=== PATIENT | female | born 1955 | race Caucasian/White ===

== ENCOUNTER → 2016-09-04 | Outpatient (CLI) | payer MEDICARE, OTHER ==
[~2016-09-04] MED LIST: ACET-141 PO; AMIO200T46 PO; AMLO-147 PO; ASPI81TA3 PO; ATOR80TA75 PO; CALC667C PO; CLOP75TA27 PO; DIPH25CA6 PO; ERGO500037 PO; HYDR-3498 PO; HYDR-3671 PO; HYDR12.544 PO; ONDA4TAB95 PO
--- NOTE | 2016-09-04 14:05 | RADRPT ---
Vent Rate: 66 bpm RR Interval: 0 msec OK Interval: 168 msec QRS Duration: 100 msec QT Interval: 428 msec QTC Interval: 448 msec P-R-T [place]: 43 - 37 - 112 degrees Normal sinus rhythm Nonspecific T wave abnormality Abnormal ECG Electronically Signed By: David Klein [id number]
== END | disposition home or self-care (01) ==
LOC: LAB 08:50
PROVIDERS: ATTEND Internal Medicine
DX: Z01.818 Encounter for other preprocedural examination (principal)
CPT/HCPCS: 93005

== ENCOUNTER 2016-09-22 10:49 | Emergency (ER) | payer MEDICARE, OTHER ==
[~2016-09-22] VITALS: Ht 152.4 cm; Wt 57.5 kg
[2016-09-22 10:52] VITALS: Ht 152.4 cm; Wt 57.5 kg
[2016-09-22] MEDS ORDERED: HYDROCODONE/APAP (5/325) TAB PO ONE (11:30)
--- NOTE | 2016-09-22 14:16 | ERD ---
ER Documentation Chief Complaint Date/Time DATE: 09/22/16 TIME: 14:14 Chief Complaint left arm pain at the dialysis shunt site, after dialysis yesterday HPI This 61-year-old female presents emergency room with left pain at her shunt site after having dialysis yesterday. States that the arm feels sore. He has not had any bleeding from the site. She has no symptoms distal to the site. Denies any fever chills or discharge from the site ROS All systems reviewed and are negative except as per history of present illness. Medications Home Meds Active Scripts Hydrocodone/Acetaminophen ([place] 5-325 Tablet) 1 Each Tablet, 1 EACH PO Q6, #10 TAB Prov:MALICK MYERS 09/22/16 Amlodipine Besylate* (Amlodipine Besylate*) 10 Mg Tablet, 10 MG PO DAILY, #90 TAB Prov:ROXANA DEL ANGEL MD 10/05/15 Hydralazine Hcl* (Hydralazine Hcl*) 25 Mg Tab, 50 MG PO BID, #180 TAB Prov:ROXANA DEL ANGEL MD 10/05/15 Hydrocodone Bit-Acetaminophen* ([place]*) 5-325 Mg Tab, 1 TAB PO Q6 Y for PAIN, # 7 TAB Prov:RADHA JOHNSON MD 08/20/15 Aspirin (Aspirin) 81 Mg Chew, 81 MG PO DAILY for 30 Days, 2 Refills Prov:NIKI SIMON S. 10/18/14 Amiodarone Hcl* (Cordarone*) 200 Mg Tab, 200 MG PO DAILY for 30 Days, TAB 2 Refills Prov:NIKI SIMON SDes 10/18/14 Reported Medications Ondansetron Hcl* (Ondansetron Hcl*) 4 Mg Tablet, 4 MG PO Q6H, TAB 08/25/15 Ergocalciferol (Vitamin D2) (VITAMIN D2) 50,000 Unit Capsule, 93451 UNIT PO, CAP 08/19/15 Atorvastatin* (Atorvastatin*) 80 Mg Tablet, 80 MG PO QHS, #30 TAB 08/19/15 Hydrochlorothiazide* (Microzide*) 12.5 Mg Capsule, 12.5 MG PO DAILY, #30 CAP 08/19/15 Clopidogrel Bisulfate (Clopidogrel) 75 Mg Tablet, 75 MG PO DAILY, #30 TAB 08/19/15 Acetaminophen* (Acetaminophen*) 500 MG Extra Strength Tablet, 500 MG PO Q6 Y for PAIN AND OR ELEVATED TEMP, TAB 08/19/15 Calcium Acetate* (Calcium Acetate*) 667 Mg Capsule, 1334 MG PO WITH MEALS, #60 CAP 07/09/15 Diphenhydramine Hcl* (Diphenhydramine Hcl*) 25 Mg Capsule, 25 MG PO Q6 Y for ITCHING, CAP 09/30/14 Allergies Allergies: Coded Allergies: morphine (Verified Allergy, Intermediate, RESPIRATORY PROBLEM,SOB SWELLING THROAT, 10/21/15) PMhx/Soc History of Surgery: No Anesthesia Reaction: No Hx Neurological Disorder: No Hx Respiratory Disorders: No Hx Cardiac Disorders: No Hx Psychiatric Problems: No Hx Miscellaneous Medical Probl: No Hx Alcohol Use: No Hx Substance Use: No Hx Tobacco Use: No Smoking Status: Never smoker Physical Exam Vitals Vital Signs Date Time Temp Pulse Resp B/P Pulse Ox O2 Delivery O2 Flow Rate FiO2 09/22/16 10:52 98.0 65 20 155/69 98 Physical Exam Const: [] No distress Head: Atraumatic Eyes: Normal Conjunctiva ENT: Normal External Ears, Nose and Mouth. Skin: No petechiae or rashes Ext: No cyanosis, or edema, left upper arm graft with apparent puncture wounds and no active bleeding., There is a palpable thrill along the entire upper arm graft. Does have mild tenderness to palpation. No surrounding erythema, or any other signs of infection. Results 24 hrs Current Medications Medications (Trade) Dose Ordered Sig/Jeanine Route PRN Reason Start Time Stop Time Status Last Admin Dose Admin Acetaminophen/ Hydrocodone Bitart ([place] (5/325)) 1 tab ONCE ONCE PO 09/22/16 11:30 09/22/16 11:31 DC 09/22/16 11:31 Procedures/MDM Left upper extremity graft ultrasound interpretation: Increased velocity in 50- 75% stenosis at site. Spoke with Dr. Gian rodriges about the ultrasound findings. He said is appropriate for the patient follow-up in his office the next 1-2 weeks and he will perform a fistulogram. Prescribe her a few [place] for any continued pain. Return precautions the ER also given. Departure Diagnosis: Primary Impression: Problem with dialysis access Condition: Stable MALICK MYERS DO Sep 22, 2016 14:16
[2016-09-22] MEDS ORDERED: HYDR-906 PO (14:31)
--- NOTE | 2016-09-22 16:26 | RADRPT ---
PROCEDURE: Left upper extremity arterial ultrasound CLINICAL INDICATION: Arm pain TECHNIQUE: Color images with Doppler of the arteries of the left upper extremity were obtained. COMPARISON: None available FINDINGS: Antegrade flow is seen in the arteries of the left upper extremity. A patent left upper extremity di alysis graft is observed. Velocities: Subclavian artery 100 cm/s.. Axillary artery 91 cm/s. Brachial artery 219 cm/s. Ulnar artery 69 cm/s. Radial artery 19 cm/s. Arterial anastomosis 563 cm/sec Proximal graft 342 cm/sec Mid graft 191 cm/sec Distal graft 103 cm/sec Venous anastomosis 521 cm/sec IMPRESSION: Antegrade flow in the arteries of the left upper extremity. Patent left upper extremity dialysis graft. Elevated velocity in the left brachial artery, possibly indicating stenosis. Decreased velocity in the left radial artery, possibly indicating inflow disease into the radial art carlee. Elevated velocity at the arterial anastomosis of the left upper extremity dialysis graft that may re flect stenosis. Elevated velocity at the distal anastomosis of the left upper extremity dialysis graft, compatible w ith stenosis. If further characterization is needed CTA or correlation with traditional angiography can be conside red. RPTAT: AA .Basim Moser MD, Date Time Electronically viewed and signed by .Basim Moser MD, MD on 09/22/2016 16:25 .P/
== END 2016-09-22 17:22 | disposition left against medical advice (07) ==
LOC: FTE 10:49
DX: T82.848A Pain due to vascular prosthetic devices, implants and grafts, initial encounter (principal); Y73.2 Prosthetic and other implants, materials and accessory gastroenterology and urology devices associated with adverse incidents; Z79.82 Long term (current) use of aspirin
CPT/HCPCS: 93931

== ENCOUNTER 2016-11-11 13:02 | Emergency (ER) | payer MEDICARE, OTHER ==
[~2016-11-11] VITALS: Ht 162.6 cm; Wt 59.0 kg
[~2016-11-11 13:02] MED LIST changes: +HYDR-906 PO
[2016-11-11 13:10] VITALS: Ht 162.6 cm; Wt 59.0 kg
[2016-11-11] MEDS ORDERED: DEXAMETHASONE 10 MG/ML 1 ML INJ IV ONE (16:30)
[2016-11-11] MEDS ORDERED: METOCLOPRAMIDE 10 MG INJ IV ONE (16:30)
[2016-11-11] MEDS ORDERED: DIPHENHYDRAMINE 50 MG INJ IV ONE (16:30)
[2016-11-11 16:33] VITALS: TEMP 97.8
[2016-11-11 17:34] LABS: BASOPHILS % 0.4 % (0.0-2.0); EOSINOPHILS # 0.2 10^3/ul (0.0-0.5); EOSINOPHILS % 1.8 % (0.0-7.0); HEMATOCRIT 33.7 % (37.0-47.0); HEMOGLOBIN 11.4 g/dl (12.0-16.0); LYMPHOCYTES # 2.2 10^3/ul (0.8-2.9); LYMPHOCYTES % 22.7 % (15.0-51.0); MEAN CORPUSCULAR HGB CONC 33.8 g/dl (32.0-37.0); MEAN CORPUSCULAR VOLUME 97.7 fl (82.0-101.0); MEAN PLATELET VOLUME 10.5 fl (7.4-10.4); MONOCYTE # 0.9 10^3/ul (0.3-0.9); MONOCYTES % 9.5 % (0.0-11.0); NEUTROPHILS % 65.3 % (39.0-77.0); PLATELET COUNT 191 10^3/UL (140-415); RED BLOOD COUNT 3.45 10^6/ul (4.20-5.40); RED CELL DISTRIBUTION WIDTH 11.9 % (11.5-14.5); WHITE BLOOD COUNT 9.5 10^3/ul (4.8-10.8)
[2016-11-11 18:16] LABS: ALBUMIN 4.3 g/dl (3.3-4.9); ALBUMIN/GLOBULIN RATIO 1.3; BILIRUBIN,INDIRECT 0.2 mg/dl (0-1.1); BILIRUBIN,TOTAL 0.2 mg/dl (0.2-1.3); CREATININE 4.4 mg/dl (0.44-1.00); POTASSIUM 4.5 mmol/L (3.5-5.1); TOTAL PROTEIN 7.6 g/dl (6.1-8.1)
--- NOTE | 2016-11-11 18:28 | ERD ---
ER Documentation Chief Complaint Date/Time DATE: 11/11/16 TIME: 18:25 Chief [address] her [address] to dialysis, came in for n/v and headache HPI This 61-year-old female presents to the emergency room for evaluation of nausea , and vomiting. The patient states that she is also had a headache for the past 3 days. She does state that she has had a headache like this before and the patient states that she was on her way to dialysis but decided to come to the emergency room. She gets dialysis Sunday, , Sunday. Patient denies any neck pain or fevers associated with this and came to the emergency room for evaluation. ROS All systems reviewed and are negative except as per history of present illness. Medications Home Meds Active Scripts Hydrocodone/Acetaminophen ([place] 5-325 Tablet) 1 Each Tablet, 1 EACH PO Q6, #10 TAB Prov:MALICK MYERS DO 09/22/16 Amlodipine Besylate* (Amlodipine Besylate*) 10 Mg Tablet, 10 MG PO DAILY, #90 TAB Prov:ROXANA DEL ANGEL MD 10/05/15 Hydralazine Hcl* (Hydralazine Hcl*) 25 Mg Tab, 50 MG PO BID, #180 TAB Prov:ROXANA DEL ANGEL MD 10/05/15 Hydrocodone Bit-Acetaminophen* ([place]*) 5-325 Mg Tab, 1 TAB PO Q6 Y for PAIN, # 7 TAB Prov:RADHA JOHNSON MD 08/20/15 Aspirin (Aspirin) 81 Mg Chew, 81 MG PO DAILY for 30 Days, 2 Refills Prov:NIKI SIMON 10/18/14 Amiodarone Hcl* (Cordarone*) 200 Mg Tab, 200 MG PO DAILY for 30 Days, TAB 2 Refills Prov:NIKI SIMON. 10/18/14 Reported Medications Ondansetron Hcl* (Ondansetron Hcl*) 4 Mg Tablet, 4 MG PO Q6H, TAB 08/25/15 Ergocalciferol (Vitamin D2) (VITAMIN D2) 50,000 Unit Capsule, 60005 UNIT PO, CAP 08/19/15 Atorvastatin* (Atorvastatin*) 80 Mg Tablet, 80 MG PO QHS, #30 TAB 08/19/15 Hydrochlorothiazide* (Microzide*) 12.5 Mg Capsule, 12.5 MG PO DAILY, #30 CAP 08/19/15 Clopidogrel Bisulfate (Clopidogrel) 75 Mg Tablet, 75 MG PO DAILY, #30 TAB 08/19/15 Acetaminophen* (Acetaminophen*) 500 MG Extra Strength Tablet, 500 MG PO Q6 Y for PAIN AND OR ELEVATED TEMP, TAB 08/19/15 Calcium Acetate* (Calcium Acetate*) 667 Mg Capsule, 1334 MG PO WITH MEALS, #60 CAP 07/09/15 Diphenhydramine Hcl* (Diphenhydramine Hcl*) 25 Mg Capsule, 25 MG PO Q6 Y for ITCHING, CAP 09/30/14 Allergies Allergies: Coded Allergies: morphine (Verified Allergy, Intermediate, RESPIRATORY PROBLEM,SOB SWELLING THROAT, 10/21/15) PMhx/Soc History of Surgery: No Anesthesia Reaction: No Hx Neurological Disorder: No Hx Respiratory Disorders: No Hx Cardiac Disorders: No Hx Psychiatric Problems: No Hx Miscellaneous Medical Probl: No Hx Alcohol Use: No Hx Substance Use: No Hx Tobacco Use: No Smoking Status: Never smoker Physical Exam Vitals Vital Signs Date Time Temp Pulse Resp B/P Pulse Ox O2 Delivery O2 Flow Rate FiO2 11/11/16 16:33 97.8 65 10 152/60 98 Room Air 11/11/16 13:10 97.8 63 18 118/54 97 Physical Exam Const: No acute distress Head: Atraumatic Eyes: Normal Conjunctiva ENT: Normal External Ears, Nose and Mouth. Neck: Full range of motion..~ No meningismus. Negative Kernig sign, negative Babinski Resp: Clear to auscultation bilaterally Cardio: Regular rate and rhythm, no murmurs Abd: Soft, non tender, non distended. Normal bowel sounds Skin: No petechiae or rashes Back: No midline or flank tenderness Ext: No cyanosis, or edema Neur: Awake and alert Psych: Normal Mood and Affect Result Diagram: 11/11/16 1705 11/11/16 1705 Results 24 hrs Laboratory Tests Test 11/11/16 17:05 White Blood Count 9.510^3/ul Red Blood Count 3.4510^6/ul Hemoglobin 11.4g/dl Hematocrit 33.7% Mean Corpuscular Volume 97.7fl Mean Corpuscular Hemoglobin 33.0pg Mean Corpuscular Hemoglobin Concent 33.8g/dl Red Cell Distribution Width 11.9% Platelet Count 99875^3/UL Mean Platelet Volume 10.5fl Neutrophils % 65.3% Lymphocytes % 22.7% Monocytes % 9.5% Eosinophils % 1.8% Basophils % 0.4% Nucleated Red Blood Cells % 0.0/100WBC Neutrophils # (Manual) 610^3/ul Lymphocytes # 2.210^3/ul Monocytes # 0.910^3/ul Eosinophils # 0.210^3/ul Basophils # 0.010^3/ul Nucleated Red Blood Cells # 0.010^3/ul Sodium Level 141mmol/L Potassium Level 4.5mmol/L Chloride Level 95mmol/L Carbon Dioxide Level 28mmol/L Anion Gap 23 Blood Urea Nitrogen 45mg/dl Creatinine 4.40mg/dl Glucose Level 119mg/dl Calcium Level 9.0mg/dl Total Bilirubin 0.2mg/dl Direct Bilirubin 0.00mg/dl Indirect Bilirubin 0.2mg/dl Aspartate Amino Transf (AST/SGOT) 26IU/L Alanine Aminotransferase (ALT/SGPT) 29IU/L Alkaline Phosphatase 146IU/L Total Protein 7.6g/dl Albumin 4.3g/dl Globulin 3.30g/dl Albumin/Globulin Ratio 1.30 Lipase 279U/L Current Medications Medications (Trade) Dose Ordered Sig/Jeanine Route PRN Reason Start Time Stop Time Status Last Admin Dose Admin Metoclopramide HCl (Reglan) 10 mg ONCE ONCE IV 11/11/16 16:30 11/11/16 16:32 DC 11/11/16 17:28 Diphenhydramine HCl (Benadryl) 25 mg ONCE ONCE IV 11/11/16 16:30 11/11/16 16:32 DC 11/11/16 17:28 Dexamethasone (Decadron) 10 mg ONCE ONCE IV 11/11/16 16:30 11/11/16 16:32 DC 11/11/16 17:28 Procedures/MDM CT brain: Pending This 61-year-old female presents to the emergency room for evaluation of nausea , vomiting and headache. When I evaluated her she was afebrile, nontoxic- appearing and in no acute distress. The patient was given a migraine cocktail with Reglan, Decadron, Benadryl. The patient's lab work does not show any signs of hyperkalemia. The patient states she is feeling better after migraine cocktail will be discharged home after CT of the brain was obtained to rule out subarachnoid hemorrhage. She will be discharged home with a prescription for Fioricet, and Zofran Departure Diagnosis: Primary Impression: Nausea and vomiting Additional Impressions: End stage renal disease Cephalgia Condition: Stable CROW GRIER DO Nov 11, 2016 18:28
[2016-11-11] MEDS ORDERED: FIORICET PO (18:29)
[2016-11-11] MEDS ORDERED: ONDA4TAB8 PO (18:29)
[2016-11-11 22:19] VITALS: BP 144/62; PULSE 81; RESP 10
--- NOTE | 2016-11-11 22:41 | RADRPT ---
PROCEDURE: CT Brain without contrast. CLINICAL INDICATION: Rule out bleed, headache, vomiting TECHNIQUE: A CT of the brain was performed utilizing axial imaging from the skull base through the vertex without intravenous contrast. Multiplanar reformatted images were made.The CTDIvol is 44.63 mGy and the DLP is 720.23 mGycm. One or more the following dose reduction techniques were utilized: Automated exposure control, adjus tment of the mA and / or kV according to patient's size, or use of iterative reconstruction techniqu e. COMPARISON: 05/16/2014 FINDINGS: There is no intracranial hemorrhage, mass effect, or midline shift. No extra-axial fluid collection is seen. Mild atrophy is identified with compensatory ventricular and sulcal enlargement. Mild to moderate decreased attenuation is seen in the periventricular and deep white matter, compatible wit h microvascular ischemic disease. Again seen is a large area of encephalomalacia involving the left parietal, posterior temporal and occipital lobes with ex vacuo changes in the left lateral ventricle . Also again seen is chronic infarct involving the left inferior cerebellar hemisphere. Calcificatio ns the largest 4 mm in the upper right posterior frontal region and 4 mm in the upper left posterior parietal lobe are again seen which could represent granulomas to be secondary to cysticercosis. The osseous structures and visualized paranasal sinuses are unremarkable. Arterial calcification. IMPRESSION: 1. No evidence of acute intracranial pathology. 2. Mild diffuse atrophy. 3. There is mild to moderate microvascular ischemic disease in the periventricular and deep white m atter. 4. Again seen is a large area of encephalomalacia involving the left parietal, posterior temporal an d occipital lobes with ex vacuo changes in the left lateral ventricle. Also again seen is chronic in farct involving the left inferior cerebellar hemisphere. Calcifications the largest 4 mm in the uppe r right posterior frontal region and 4 mm in the upper left posterior parietal lobe are again seen w hich could represent granulomas to be secondary to cysticercosis. 5. 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 RPTAT: HJES .Kobi Cruz MD, MD Date Time Electronically viewed and signed by .Kobi Cruz MD, on 11/11/2016 22:41 .S/
--- NOTE | 2016-11-11 23:40 | EN ---
Date/Time of Note Date/Time of Note DATE: 11/11/16 TIME: 22:51 ER Progress Note The CAT scan read of this patient was signed out to me because of the CT being down. Head CT was pending. There is no acute process on the CAT scan. Patient will be discharged according to plan. CT head interpretation: I see no acute process. I see no hemorrhage, no mass- effect no midline shift, no skull fracture. Radiologist had mentioned microvascular ischemic disease. I called him to clarify that this is not an acute process. MALICK MYERS DO Nov 11, 2016 22:52
== END 2016-11-11 23:00 | disposition home or self-care (01) ==
LOC: E/R 13:02
DX: R11.2 Nausea with vomiting, unspecified (principal); R40.2252 Coma scale, best verbal response, oriented, at arrival to emergency department; N18.6 End stage renal disease; R51 Headache; R40.2142 Coma scale, eyes open, spontaneous, at arrival to emergency department; R40.2362 Coma scale, best motor response, obeys commands, at arrival to emergency department; Z99.2 Dependence on renal dialysis; Z79.82 Long term (current) use of aspirin; Z79.01 Long term (current) use of anticoagulants
CPT/HCPCS: 36415; 70470; 80053; 83690; 85025; 96374; 96375; 99285; J1100; J1200; J2765

== ENCOUNTER 2017-01-09 17:37 | Emergency (ER) | payer MEDICARE, OTHER ==
[~2017-01-09] VITALS: Wt 57.0 kg
[~2017-01-09 17:37] MED LIST changes: +FIORICET PO; +ONDA4TAB8 PO
--- NOTE | 2017-01-09 20:01 | ERD ---
ER Documentation Chief Complaint Date/Time DATE: 01/09/17 TIME: 19:56 Chief Complaint SUTURE REMOVAL ON RIGHT SUBCLAVIAN FROM PREVIOUS DIALYSIS ACCESS HPI This 61-year-old diabetic female with end-stage renal failure on hemodialysis, patient presents to emergency department for right subclavian suture removal s/ p HD catheter removal 2 months ago. pt has a patent left arm HD access, is Burmese speaking son in room for translation, reports that DR Lopez called a week ago ok to come and have suture removed. ROS All systems reviewed and are negative except as per history of present illness. Medications Home Meds Active Scripts Ondansetron Hcl* (Zofran*) 4 Mg Tablet, 4 MG PO Q6H for NAUSEA AND/OR VOMITING, #15 TAB Prov:CROW GRIER DO 11/11/16 Acetamin/Butalbital/Caffeine* (Fioricet*) [id number] Tab, 1 TAB PO Q6H Y for PAIN, #15 TAB Prov:CROW GRIER DO 11/11/16 Hydrocodone/Acetaminophen ([place] 5-325 Tablet) 1 Each Tablet, 1 EACH PO Q6, #10 TAB Prov:MALICK MYERS DO 09/22/16 Amlodipine Besylate* (Amlodipine Besylate*) 10 Mg Tablet, 10 MG PO DAILY, #90 TAB Prov:ROXANA DEL ANGEL MD 10/05/15 Hydralazine Hcl* (Hydralazine Hcl*) 25 Mg Tab, 50 MG PO BID, #180 TAB Prov:ROXANA DEL ANGEL MD 10/05/15 Hydrocodone Bit-Acetaminophen* ([place]*) 5-325 Mg Tab, 1 TAB PO Q6 Y for PAIN, # 7 TAB Prov:RADHA JOHNSON MD 08/20/15 Aspirin (Aspirin) 81 Mg Chew, 81 MG PO DAILY for 30 Days, 2 Refills Prov:NIKI SIMON 10/18/14 Amiodarone Hcl* (Cordarone*) 200 Mg Tab, 200 MG PO DAILY for 30 Days, TAB 2 Refills Prov:NIKI SIMON 10/18/14 Reported Medications Ondansetron Hcl* (Ondansetron Hcl*) 4 Mg Tablet, 4 MG PO Q6H, TAB 6/1/16 Ergocalciferol (Vitamin D2) (VITAMIN D2) 50,000 Unit Capsule, 88550 UNIT PO, CAP 08/19/15 Atorvastatin* (Atorvastatin*) 80 Mg Tablet, 80 MG PO QHS, #30 TAB 08/19/15 Hydrochlorothiazide* (Microzide*) 12.5 Mg Capsule, 12.5 MG PO DAILY, #30 CAP 08/19/15 Clopidogrel Bisulfate (Clopidogrel) 75 Mg Tablet, 75 MG PO DAILY, #30 TAB 08/19/15 Acetaminophen* (Acetaminophen*) 500 MG Extra Strength Tablet, 500 MG PO Q6 Y for PAIN AND OR ELEVATED TEMP, TAB 08/19/15 Calcium Acetate* (Calcium Acetate*) 667 Mg Capsule, 1334 MG PO WITH MEALS, #60 CAP 07/09/15 Diphenhydramine Hcl* (Diphenhydramine Hcl*) 25 Mg Capsule, 25 MG PO Q6 Y for ITCHING, CAP 09/30/14 Allergies Allergies: Coded Allergies: morphine (Verified Allergy, Intermediate, RESPIRATORY PROBLEM,SOB SWELLING THROAT, 10/21/15) PMhx/Soc History of Surgery: Yes (Eye) Anesthesia Reaction: No Hx Neurological Disorder: No Hx Respiratory Disorders: No Hx Cardiac Disorders: Yes (HTN) Hx Psychiatric Problems: No Hx Miscellaneous Medical Probl: Yes (ESRD, DM) Hx Alcohol Use: No Hx Substance Use: No Hx Tobacco Use: No Physical Exam Vitals Vital Signs Date Time Temp Pulse Resp B/P Pulse Ox O2 Delivery O2 Flow Rate FiO2 01/09/17 17:40 97.9 75 17 119/58 99 Vitals stable, triage notes reviewed Physical Exam Const: Well-nourished, well-hydrated, 61-year-old diabetic female, status post left BKA, left hemodialysis catheter in place Head: Eyes: ENT: Normal External Ears, Nose and Mouth because membranes moist. Neck: Full range of motion..~ No meningismus. Resp: Cardio: Abd: Skin: Right subclavian with a tie suture sticking out from insertion site, hemodialysis catheter Back: No midline or flank tenderness Ext: Left BKA Neur: Awake and alert Psych: Normal Mood and Affect Procedures/MDM Suture Removal by me: Sutures removed with tweezers and scissors without incident. Wound shows no evidence of infection, foreign body, neurologic injury, vascular injury, open joint or tendon laceration. Patient to follow up PRN. This 61-year-old female presents to emergency department for removal of sutures , status post right subclavian hemodialysis catheter removed 2 months ago. Patient has a functioning left arm hemodialysis catheter, patient instructed to come to emergency room to have closing pull suture removed. Emergency room course includes history and physical exam, findings consistent with a purse string suture, removed in usual fashion without bleeding. No ecchymosis, vascular access site suture removal site is hypersensitive to light touch, covered with a pressure dressing. Follow-up with primary care physician, continue all current medication orders as prescribed. Return to emergency department emergently for bleeding from subclavian access site. Patient is stable with no new complaints during ER course, clinically there is no current evidence to nuclear abnormality, cellulitis coronary syndromes, pulmonary embolism or any other emergent condition appearing to require further evaluation or hospitalization. I feel the patient is stable for discharge at this time. I have discussed results, examination findings, the treatment plan with the patient and family present prior to discharge. Indications for emergent reevaluation, side effects of medication were also discussed. All questions were answered. Patient verbalizes understanding and agrees with plan of care. Departure Diagnosis: Primary Impression: Encounter for removal of sutures Condition: Good Patient Instructions: Suture Removal, No Complication [facility] Additional Instructions: Thank you for for coming to [facility] for your care today. Please ask your nurse or provider if you have questions about your care today and do not leave until all your questions have been answered. Please use any medications given as directed and follow-up with your doctor (or the doctor you were referred to) in the next 2-3 days. If you do not have a primary care doctor you may follow up at the community hospital (listed below). You may also use motrin and tylenol as needed for fever and/or pain unless instructed otherwise by your provider or nurse. Indications for more urgent follow-up have been discussed, but you may return to the Emergency Department at ANY time for any worrisome or worsening symptoms. If you have abdominal pain, please know that no test or exam you received is perfect and you should follow up within 8 hours for continued pain. If you had any imaging studies today, such as an X-Ray or CT Scan, these studies will be reviewed later by a radiologist. You will be called if there are important findings that were not identified today, so make sure the contact information you provided at registration is correct. If you received any narcotic pain control medicine today, such as Vicodin, Morphine or Dilaudid, your coordination and judgment may be affected for a number of hours. Please do not drive or operate heavy machinery, and you may want someone to assist you at home. If you were given a prescription for narcotic medication, be aware that it is very addictive- use sparingly and only if necessary. XOCHITL CRAMER Jan 09, 2017 20:01
== END 2017-01-09 20:43 | disposition home or self-care (01) ==
LOC: FTE 17:37
DX: Z48.02 Encounter for removal of sutures (principal); I12.0 Hypertensive chronic kidney disease with stage 5 chronic kidney disease or end stage renal disease; N18.6 End stage renal disease; E11.22 Type 2 diabetes mellitus with diabetic chronic kidney disease; Z79.01 Long term (current) use of anticoagulants; Z79.82 Long term (current) use of aspirin; Z99.2 Dependence on renal dialysis
CPT/HCPCS: 99281

== ENCOUNTER 2017-04-19 01:03 | Emergency (ER) | END 2017-04-19 03:28 | disposition home or self-care (01) ==